=== PATIENT | female | born 1995 | race Two or more races ===

== ENCOUNTER 2020-06-12 16:48 | Emergency (ER) | payer SELFPAY ==
--- NOTE | 2020-06-12 18:55 | ER Document Report ---
ED Medical Screen (RME) - General Chief Complaint: Abscess Stated Complaint: ABSCESS Time Seen by Provider: 06/12/20 18:47 - HPI Notes: Patient is a 25 y/o female who presents with an abscess on her buttocks that she noticed yesterday. Patient states she was seen at [facility] two months ago for the same thing and they drained it and put her on antibiotics. She reports tenderness to the area but denies fever and vomiting. Physical Exam - Vital signs Vitals: Temp Pulse Resp BP Pulse Ox 98.5 F 87 20 122/74 100 06/12/20 17:00 06/12/20 17:00 06/12/20 17:06/12/20 17:00 06/12/20 17:00 Interpretation: No: Febrile - General General appearance: Appears well In distress: None - Skin Notes: Unable to assess abscess in triage due to the location. Will have to wait to be assessed once patient gets a room in the back. Course - Re-evaluation Re-evalutation: I have greeted and performed a rapid initial assessment of this patient. A comprehensive ED assessment and evaluation of the patient, analysis of test results and completion of medical decision making process will be conducted by an additional ED providers. - Vital Signs Vital signs: Temp Pulse Resp BP Pulse Ox 98.5 F 87 20 122/74 100 06/12/20 17:00 06/12/20 17:06/12/20 17:06/12/20 17:00 06/12/20 17:00
[2020-06-13] MEDS ORDERED: CEPHALEXIN 500 MG CAPSULE PO ONE (00:04)
[2020-06-13] MEDS ORDERED: SULFAMETHOXAZOLE/TRIMETHOPRIM 800-160 MG TABLET PO ONE (00:04)
[2020-06-13] MEDS ORDERED: HYDROCODONE/ACETAMINOPHEN 5-325 MG (6 TAB/ER DISP) PO PRN (00:04)
--- NOTE | 2020-06-13 00:08 | ER Document Report ---
HPI - HPI Patient complains to provider of: Abscess Time Seen by Provider: 06/12/20 18:47 Onset: Yesterday Onset/Duration: Gradual Quality of pain: Achy Pain Level: 3 Context: Patient complains of abscess to the buttocks that started yesterday. Patient states that she has had an abscess here in the past. Patient states that during her wait here tonight area has started to drain on its own. Patient denies any fever. Associated Symptoms: Other - Abscess. denies: Fever Exacerbated by: Movement Relieved by: Denies Similar symptoms previously: Yes Recently seen / treated by doctor: No - ROS ROS below otherwise negative: Yes Systems Reviewed and Negative: Yes All other systems reviewed and negative - CONSTITUTIONAL Constitutional: DENIES: Fever - NEURO Neurology: DENIES: Weakness - GASTROINTESTINAL Gastrointestinal: DENIES: Nausea - DERM Skin Color: Normal Notes: Abscess Past Medical History - General Information source: Patient - Social History Smoking Status: Never Smoker Frequency of alcohol use: Occasional Drug Abuse: None Occupation: [employer] Lives with: Family Family History: Reviewed & Not Pertinent - Medical History Medical History: Negative Vertical Provider Document - CONSTITUTIONAL Agree With Documented VS: Yes Exam Limitations: No Limitations General Appearance: WD/WN, No Apparent Distress - HEENT HEENT: Atraumatic, Normocephalic - NECK Neck: Normal Inspection - RESPIRATORY Respiratory: Breath Sounds Normal, No Respiratory Distress - CARDIOVASCULAR Cardiovascular: Regular Rate, Regular Rhythm - MUSCULOSKELETAL/EXTREMETIES Musculoskeletal/Extremeties: MAEW - NEURO Level of Consciousness: Awake, Alert, Appropriate Motor/Sensory: No Motor Deficit, No Sensory Deficit - DERM Integumentary: Warm, Dry, Abscess - Spontaneously draining small abscess to right right of gluteal cleft Course - Re-evaluation Re-evalutation: 06/13/20 00:05 Wound culture obtained, unable to express any additional purulent drainage. No appreciable fluctuance. Patient did have purulent drainage on clothing from spontaneous drainage from abscess. - Vital Signs Vital signs: Temp Pulse Resp BP Pulse Ox 98.5 F 87 20 122/74 100 06/12/20 17:00 06/12/20 17:00 06/12/20 17:00 06/12/20 17:00 06/12/20 17:00 - Laboratory Results Critical Laboratory Results Reviewed: No Critical Results - Radiology Results Critical Radiology Results Reviewed: No Critical Results Discharge - Discharge Clinical Impression: Abscess Condition: Stable Disposition: HOME, SELF-CARE Instructions: Abscess ([facility]), Cephalexin ([facility]), Oral Narcotic Medication ([facility]), Trimethoprim-Sulfa ([facility]) Additional Instructions: Return immediately for any new or worsening symptoms; fever, swelling, redness, worsening pain or any concerning symptoms Followup with your primary care provider, call tomorrow to make a followup appointment Apply warm compresses to the area Prescriptions: Sulfamethoxazole/Trimethoprim [Bactrim Ds Tablet] 1 each PO BID #20 tablet Cephalexin Monohydrate [Keflex 500 mg Capsule] 500 mg PO Q6H 7 Days #28 capsule Naproxen [Naprosyn 250 Nmg Tablet] 1 tab PO BID #14 tablet Forms: Return to School, Return to Work Referrals: [facility] [Provider Group] - Follow up as needed [facility] [Provider Group] - Follow up as needed
[2020-06-13 00:36] VITALS: BP 118/65
== END 2020-06-13 00:36 | disposition home or self-care (01) ==
LOC: ER 16:48
DX: L02.31 Cutaneous abscess of buttock (principal)
CPT/HCPCS: 87070; 87075; 87077; 87205; 99283